=== PATIENT | female | born 1985 | race Asian ===

== ENCOUNTER 2019-09-21 18:26 | Emergency (ER) | payer OTHER ==
--- NOTE | 2019-09-21 18:51 | ED Physician Documentation ---
History of Present Illness - Stated complaint Stated Complaint: N/V - Chief complaint Chief Complaint: Abd Pain - Additonal information Additional information: This is a 34-year-old female currently 9 weeks with a confirmed IUP by ultrasound, who presents with persistent nausea and vomiting. Patient has been struggling with nausea and vomiting over the last month, it sounds like she has been diagnosed with hyperemesis gravidarum, She has tried vitamin B6, and also Zofran, and this has been managing her symptoms somewhat, however today she has been unable to keep anything down. She denies any abdominal pain, no cramping or vaginal bleeding. No headache. Review of Systems Constitutional: denies: Fever GI: reports: Nausea, Vomiting : denies: Dysuria PD PAST MEDICAL HISTORY - Past Surgical History Past Surgical History: No - Present Medications Home Medications: Ambulatory Orders Medication Instructions Recorded Confirmed Diphenhydramine HCl [Allergy 25 mg PO Q6HR PRN #20 tablet 09/21/19 Medication] Metoclopramide [Reglan] 10 mg PO Q6H PRN #10 tablet 09/21/19 - Allergies Allergies/Adverse Reactions: Allergies Allergy/AdvReac Type Severity Reaction Status Date / Time No Known Drug Allergies Allergy Verified 09/21/19 18:31 - Living Situation Living Situation: reports: With spouse/s.o. Living Arrangement: reports: At home - Social History Does the pt smoke?: No PD ED PE NORMAL - Vitals Vital signs reviewed: Yes - General General: Alert and oriented X 3, No acute distress - HEENT HEENT: PERRL - Neck Neck: Supple, no meningeal sign - Cardiac Cardiac: RRR - Respiratory Respiratory: No respiratory distress, Clear bilaterally - Abdomen Abdomen: Soft, Non tender, Non distended - Derm Derm: Warm and dry - Extremities Extremities: No deformity - Neuro Neuro: Alert and oriented X 3, Normal speech - Psych Psych: Normal mood, Normal affect Results - Vitals Vitals: Vital Signs - 24 hr 09/21/19 09/21/19 09/21/19 18:31 19:15 20:32 Temperature 36.8 C Heart Rate 80 77 72 Respiratory 16 16 18 Rate Blood Pressure 123/70 103/65 98/58 L O2 Saturation 99 100 98 Oxygen O2 Source Room air - Labs Labs: Laboratory Tests 09/21/19 09/21/19 19:05 19:05 WBC 13.0 H RBC 4.54 Hgb 12.3 Hct 37.7 MCV 83.0 MCH 27.1 MCHC 32.6 RDW 17.5 H Plt Count 286 MPV 8.8 Neut # (Auto) 9.6 H Lymph # (Auto) 1.8 [place] # (Auto) 1.3 H Eos # (Auto) 0.2 Baso # (Auto) 0.1 Absolute Nucleated RBC 0.00 Nucleated RBC % 0.0 Sodium 134 L Potassium 3.6 Chloride 101 Carbon Dioxide 24 Anion Gap 9.0 BUN 8 Creatinine 0.6 Estimated GFR (MDRD) 116 Glucose 93 Calcium 8.8 Total Bilirubin 0.4 AST 16 ALT 19 Alkaline Phosphatase 46 Total Protein 7.6 Albumin 3.8 Globulin 3.8 Albumin/Globulin Ratio 1.0 Lipase 25 PD MEDICAL DECISION MAKING - ED course Complexity details: considered differential (Hyperemesis gravidarum, electrolyte abnormality, dehydration) ED course: On exam patient is nontoxic-appearing, vital signs are unremarkable. Labs show a mild leukocytosis which is consistent with , and nonspecific. Abdominal panel is unremarkable. heart tones are present and within normal range. She has no abdominal pain, tenderness, or vaginal bleeding. Patient was given Reglan and a liter of normal saline, on repeat evaluation she is feeling improved. She is able to drink fluids without issue. It appears that she likely has hyperemesis gravidarum, and she seems to be responsive to the Reglan. I discussed nausea control with Reglan, diphenhydramine if needed, I also discussed Avoiding combining the Zofran And Reglan together if possible, given the potential for dysrhythmia/QT prolongation. Return precautions including persistent vomiting, abdominal pain, or any other concerning symptoms were discussed and patient was discharged with instructions to follow-up with her OB. Departure - Departure Disposition: 01 Home, Self Care Clinical Impression: Vomiting Qualifiers: Vomiting type: unspecified Vomiting Intractability: non-intractable Nausea presence: with nausea Qualified Code(s): R11.2 - Nausea with vomiting, unspecified Condition: Good Follow-Up: Your,OB [Other] Prescriptions: Diphenhydramine HCl [Allergy Medication] 25 mg PO Q6HR PRN #20 tablet PRN Reason: Nausea / Vomiting Metoclopramide [Reglan] 10 mg PO Q6H PRN #10 tablet PRN Reason: Nausea / Vomiting Comments: You were seen today for nausea and vomiting. I am prescribing you Reglan which you can take along with some Benadryl and the vitamin B6 to help with your nausea and vomiting. Please try to drink adequate fluids, and follow-up with your OB as soon as possible. If you develop persistent vomiting despite the medications, or abdominal pain, fever, or other concerning symptoms, please return to the emergency department. Discharge Date/Time: 09/21/19 20:24
[2019-09-21] MEDS ORDERED: SODIUM CHLORIDE 0.9% 1,000 ML IV ONE (18:52)
[2019-09-21] MEDS ORDERED: METOPROLOL 5 MG/5 ML VIAL IVP STA (18:52)
[2019-09-21 19:11] LABS: BASOPHILS # (AUTO) 0.1 10^3/uL (0.0-0.1); BASOPHILS % (AUTO) 0.5 %; EOSINOPHILS # (AUTO) 0.2 10^3/uL (0.0-0.7); EOSINOPHILS % (AUTO) 1.3 %; HGB - HEMOGLOBIN 12.3 g/dL (12.0-16.0); LYMPHOCYTES # (AUTO) 1.8 10^3/uL (1.5-3.5); LYMPHOCYTES % (AUTO) 13.9 %; MEAN CORPUSCULAR HEMOGLOBIN 27.1 pg (27.0-31.0); MEAN CORPUSCULAR HGB CONC 32.6 g/dL (32.0-36.0); MEAN PLATELET VOLUME 8.8 fL (7.9-10.8); MONOCYTES # (AUTO) 1.3 10^3/uL (0.0-1.0); MONOCYTES % (AUTO) 9.8 %; NEUTROPHILS # (AUTO) 9.6 10^3/uL (1.5-6.6); PLT - PLATELET COUNT 286 10^3/uL (130-450); RED BLOOD COUNT 4.54 10^6/uL (4.20-5.40); RED CELL DISTRIBUTION WIDTH 17.5 % (12.0-15.0)
[2019-09-21] MEDS ORDERED: METOCLOPRAMIDE 10 MG/2 ML VIAL IVP STA (19:16)
[2019-09-21 19:26] LABS: ALBUMIN 3.8 g/dL (3.2-5.5); BILIRUBIN,TOTAL 0.4 mg/dL (0.2-1.0); CALCIUM 8.8 mg/dL (8.5-10.3); CREATININE 0.6 mg/dL (0.4-1.0); TOTAL PROTEIN 7.6 g/dL (6.7-8.2)
[2019-09-21 20:33] VITALS: BP 98/58
== END 2019-09-21 20:24 | disposition home or self-care (01) ==
LOC: ED 18:26
DX: O21.9 Vomiting of pregnancy, unspecified (principal); Z3A.09 9 weeks gestation of pregnancy
CPT/HCPCS: 36415; 80053; 83690; 85025; 96361; 96374; 99283; 99284; J2765